=== PATIENT | female | born 1975 | race Hispanic/Latino ===

== ENCOUNTER 2017-12-05 06:37 | Inpatient (IN) | payer MEDICAID, SELFPAY ==
--- NOTE | 2017-12-05 07:26 | PDOC.LDHP ---
Labor and Delivery H&P Chief complaint: contractions HPI: 42 year old at 39.3 wks with CICI of 12/09/2017 not c/w LMP, but first ( 7.6 wks) and second trimester ultrasounds had consistent dating. Presents with contractions. Current gestational age (weeks): 39 (39.3) Due date: 12/09/17 Dating criteria: first trimester ultrasound, second trimester ultrasound Grav: 7 Para: 5 OB History Details: 1. GBS bateriuria 2. AMA 3. [place] 4. Hx of spontaneous ab in first trimester Current complications: none Abnormal US findings: No Past Medical History: 1. MDD Current medications: pre- vitamins Previous surgical history: none Social history: none - Physical Exam Vital signs reviewed and normal: yes General: NAD, resting Heart: RRR Lungs: nonlabored breathing Abdomen: gravid Extremeties: no edema FHT: category 1, variability present - Vaginal Exam cm dilated: 4 (By Timothy @ 7:30) Effacement: 75% Station: -2 - OB Labs Blood type: A RH: positive Antibody Screen: negative HIV: negative RPR: negative HEPSAg: negative 1 hour GCT: positive 3 hour GTT: negative GBS: positive Urine drug screen: not done Rubella: immune Additional Labs: Pap smear: normal in 2017 - Assessment L&D Assessment: term patient in labor - Plan Plan: admit to L&D <Nicol Carranza - Last Filed: 12/05/17 07:35> <Sakina Kelley - Last Filed: 12/05/17 10:57> Allergies/Adverse Reactions: Allergies Allergy/AdvReac Type Severity Reaction Status Date / Time No Known Drug Allergies Allergy Verified 03/09/14 04:40 Attending Addendum - Attending Addendum Date/Time: 12/05/17 1053 I personally evaluated the patient and discussed the management with Dr. Carranza/Timothy I agree with the History, Examination, Assessment and Plan documented above with any addition or exceptions noted below- 42 yo @ 39.3 weeks presented with ctx. Denies LOF, VB. (+)FM. Afebrile VSS SVE 4/75%/-2 per resident. Category 1 FHTs. ctx q5-6 min. A/p: IUP @39.3 weeks in latent labor. Cervical change in office earlier this week was 2cm. Monitor for change. Consider ambulation. <Sakina Kelley - Last Filed: 12/05/17 10:57>
[2017-12-05] MEDS ORDERED: Lidocaine 1% (PF) 30 ML VIAL SC PRN (07:37)
[2017-12-05] MEDS ORDERED: Ibuprofen 800 MG TAB PO PRN (07:37)
[2017-12-05] MEDS ORDERED: Promethazine HCl 25 MG/ML VIAL IM PRN (07:37)
[2017-12-05] MEDS ORDERED: Ondansetron HCl/PF 4 MG/2 ML Vial IVP PRN (07:37)
[2017-12-05] MEDS ORDERED: LR / Pitocin 40 units/1000 ml 1,000 ML IV PRN (07:37)
[2017-12-05 07:55] VITALS: BMI 30.6
[2017-12-05] MEDS ORDERED: Penicillin G Potassium 5 MILL.UNITS in Sodium Chloride 0.9% 100 ML IVPB SCH (08:00)
[2017-12-05] MEDS: Lactated Ringer's 1,000 ML IV SCH ×2 (08:10→12:44)
[2017-12-05 08:55] LABS: Hemoglobin 12.4 g/dL (12.0-16.0); Mean Corpuscular HGB CONC 32.4 g/dL (32.0-36.0); Mean Corpuscular Hemoglobin 29.1 pg (27.0-31.0); Mean Corpuscular Volume 89.7 fl (81.0-99.0); Mean Platelet Volume 8.2 fL (7.4-10.4); Platelet Count 178 thou/uL (130-400); RBC Distribution Width 12.6 % (11.5-14.5); Red Blood Cell (RBC) Count 4.27 mill/uL (4.20-5.40); White Blood Cell (WBC) Count 6.8 thou/uL (4.8-10.8)
[2017-12-05 09:18] LABS: HBSAg Index 0.18 S/CO (0-0.99); Hep B Surf Ag Non-Reactive S/CO (NonReactive)
[2017-12-05 09:19] LABS: Syphilis Antibody Nonreactive (Nonreactive); Syphilis Antibody Index 0.25 S/CO (<1.00 Non-Reactive)
[2017-12-05] MEDS ORDERED: Methylergonovine 0.2 MG/ML VIAL ONE (10:50)
[2017-12-05] MEDS ORDERED: LR / Pitocin 40 units/1000 ml 1,000 ML ONE (10:50)
[2017-12-05] MEDS ORDERED: Misoprostol 200 MCG TAB ONE (10:50)
[2017-12-05] MEDS ORDERED: Lidocaine 1% (PF) 30 ML VIAL ONE (10:50)
[2017-12-05] MEDS ORDERED: Misoprostol 100 MCG TAB ONE (10:51)
--- NOTE | 2017-12-05 10:59 | PDOC.LDPN ---
Labor & Delivery Progress Note - Subjective Subjective: painful contractions - Objective Vital signs reviewed and normal: yes General: breathing through contractions Uterine fundus: palpable contractions SVE: 10:50 Dilation: 6-7 Effacement: 100% Station: -2 FHT: category 1 [place] contractions every: q2-3 min Plan: continue plan of care -: Patient progressing spontaneously. Has received 1 dose of PCN G for GBS prophylaxis. Next dose due @ 12:20; defer AROM until then.
[2017-12-05] MEDS: Penicillin G 2.5 MILL.units 2.5 MILL.UNITS in Premix Bag 1 BAG IVPB SCH ×3 (12:00→23:20)
--- NOTE | 2017-12-05 13:04 | PDOC.LDPN ---
Labor & Delivery Progress Note - Subjective Subjective: painful contractions - Objective Vital signs reviewed and normal: yes General: breathing through contractions Uterine fundus: palpable contractions SVE: 13:00 Dilation: 7 Effacement: 100% Station: -1 FHT: category 1 [place] contractions every: q2 min Other exam findings: SROM on exam- clear fluid Plan: continue plan of care -: Srom on exam- cervix stretchy 7cm. Head now -1 station. Anticipate soon. Has received PCN x2 for GBS prophylaxis.
[2017-12-05] MEDS ORDERED: Terbutaline Sulfate 1 MG/ML VIAL ONE (13:40)
[2017-12-05] MEDS ORDERED: Milk Of Magnesia 30 ML UDCUP PO PRN (14:43)
[2017-12-05] MEDS ORDERED: Lanolin Ointment 7 GM TUBE TOP PRN (14:43)
[2017-12-05] MEDS ORDERED: Adacel (T-DAP) 0.5 ML VIAL IM ONE (14:43)
[2017-12-05] MEDS ORDERED: diphenhydrAMINE 25 MG CAP PO PRN (14:43)
[2017-12-05] MEDS ORDERED: HYDROcodone/Acetaminophen 5/325 mg Tablet PO PRN (14:43)
[2017-12-05] MEDS ORDERED: Bisacodyl 10 MG SUPP PR PRN (14:43)
[2017-12-05] MEDS ORDERED: Preparation H Ointment 28 GM TUBE PR PRN (14:43)
[2017-12-05] MEDS ORDERED: LR / Pitocin 40 units/1000 ml 1,000 ML IV SCH (14:45)
[2017-12-05] MEDS ORDERED: LR 500 ML/Oxytocin 10 units 500 ML IV SCH (16:15)
--- NOTE | 2017-12-05 17:05 | PDOC.EVN ---
Event Note - Event Note Event Note: Delivering Physician Timothy Attending Grace Procedure: Spontaneous Vaginal Delivery, vacuum assist Anesthesia: none EBL: 200 ml Pre-op Diagnosis: 1. Term intrauterine in labor 2. advanced maternal age 3. GBS bacteruria Post-op Diagnosis: 1. Term intrauterine , delivered 2. same as above Indications: A 42 y/o female --> 6presents in active labor Delivery Note: This is 42 yo F @ 39.3 wks who delivered a viable M at 1622 ib 12/05/17. Following an uneventful antepartum course, a vigorous M was delivered over an intact perineum in the transverse position. Anterior Shoulder and then remainder of the body delivered. No nuchal cord. The head was held down and mouth and nares were bulb suctioned. Cord clamped and cut and cord blood collected. Placenta delivered intact with a 3 vessel cord noted. Fundal massage was performed and the fundus was firm. The cervix and vagina were inspected and found to be free of lacerations. Infant went to nursery in good condition for routine care. Apgars were 8, 9 at 1 & 5 minutes, respectively. Patient tolerated delivery well and went to after routine recovery/care. <Marni Aguirre - Last Filed: 12/05/17 17:02> - Event Note Event Note: I was present for, supervised and assisted with the vacuum assisted vaginal delivery. I agree with the findings and plan as documented by the resident with the exception of any changes noted below. 42 yo [id number] status post VAVD. During pushing the FHTs were noted to be in the 60s without recovery during rest periods or between contractions. Because of this, a vacuum delivery was recommended. The patient agreed. The bladder had been drained prior to initiation of pushing. The baby was in the right occiput anterior postition at + 2 station. Vacuum was applied to flexion point and inflated. With maternal pushing gentle traction was applied and the baby was brought to +4 station. . A modified Ritgen maneuver was used to stabilize the head. The vacuum was deflated and removed. The baby's head then delivered atraumatically. Remainder of delivery as documented above. <Celina Edwards - Last Filed: 12/07/17 08:40>
[2017-12-05] MEDS: Docusate Calcium (SURFAK) 240 MG CAP PO SCH (20:21)
[2017-12-05] MEDS: Ibuprofen 800 MG TAB PO SCH (20:22)
[2017-12-05] MEDS: Ferrous Sulfate 325 MG TAB PO SCH (23:19)
[2017-12-06] MEDS: Ibuprofen 800 MG TAB PO SCH ×3 (05:17→21:24)
[2017-12-06 05:39] LABS: Hemoglobin 12.2 g/dL (12.0-16.0); Mean Corpuscular HGB CONC 33.7 g/dL (32.0-36.0); Mean Corpuscular Hemoglobin 30.1 pg (27.0-31.0); Mean Corpuscular Volume 89.3 fl (81.0-99.0); Mean Platelet Volume 8.1 fL (7.4-10.4); Platelet Count 174 thou/uL (130-400); RBC Distribution Width 12.9 % (11.5-14.5); Red Blood Cell (RBC) Count 4.07 mill/uL (4.20-5.40); White Blood Cell (WBC) Count 15.3 thou/uL (4.8-10.8)
--- NOTE | 2017-12-06 07:23 | PDOC.PP ---
Post Progress Note Post Day #: 1 Subjective: She states that she is feeling very good, does not have much pain. Ambulating w/ o pain. Good appetite. Minimal vaginal bleeding. Discussed with her the option of vascectomy vs nexplanon in the clinic. She is interested, hasn't discussed it with her yet but just wondering which option would be more economical. PO intake tolerated: yes Flatus: yes Ambulation: yes Vital Signs (12 hours) Temp Pulse Resp BP 12/06/17 04:00 98.1 F 69 16 100/49 L 12/06/17 00:00 98.9 F 72 16 110/56 L 12/05/17 21:20 98.9 F 72 16 115/55 L 12/05/17 20:20 68 16 118/53 L 12/05/17 20:00 98.2 F 61 16 130/67 Weight Weight 80.82 kg - Physical Examination General: NAD Cardiovascular: no m/r/g, RRR Respiratory: clear to auscultation bilaterally, non-labored breathing Abdominal: + bowel sounds, lochia, no distention, appropriately TTP Neurological: no gross focal deficits Psychiatric: A&Ox3, normal affect Result Diagrams: 12/06/17 05:15 Additional Labs: Post Labs Hep Bs Antigen Non-Reactive S/CO (NonReactive) 12/05/17 08:27 (1) Status post vacuum-assisted vaginal delivery Code(s): Z87.42 - PERSONAL HISTORY OF OTH DISEASES OF THE FEMALE GENITAL TRACT Status: Acute Comment: Used vacuum briefly to assist delivery 2/2 to maternal fatigue, no perineal lacs (2) Advanced maternal age (AMA), 40 years or greater Code(s): [id number] - Status: Acute Comment: Overall doing well. Discussed milk supply coming in in a few days and encouraged continuing to breast feed. (3) GBS bacteriuria Code(s): R82.71 - BACTERIURIA Status: Acute Comment: GBS bacteruria early in , will watch baby for 48 hrs so mom will be here til tomorrow. <Marni Aguirre - Last Filed: 12/06/17 07:21> Vital Signs (12 hours) Temp Pulse Resp BP 12/06/17 07:50 98.0 F 64 16 102/57 L 12/06/17 04:00 98.1 F 69 16 100/49 L 12/06/17 00:00 98.9 F 72 16 110/56 L Weight Weight 80.82 kg Result Diagrams: 12/06/17 05:15 Additional Labs: Post Labs Hep Bs Antigen Non-Reactive S/CO (NonReactive) 12/05/17 08:27 <Sakina Kelley - Last Filed: 12/06/17 09:50> Attending Addendum - Attending Addendum Date/Time: 12/06/1748 I personally evaluated the patient and discussed the management with Dr. Aguirre I agree with the History, Examination, Assessment and Plan documented above with any addition or exceptions noted below- Patient without complaints. Denies any pain. Minimal vaginal bleeding. Afebrile VSS. A/P: PPD#1 s/p VAVD- continue routine care. Monitor for 36-48 hours due to GBS bacteruria in mom; adequately treated. <Sakina Kelley - Last Filed: 12/06/17 09:50>
[2017-12-06] MEDS: Ferrous Sulfate 325 MG TAB PO SCH ×2 (10:01→15:50)
[2017-12-06] MEDS: Prenatal Vitamin 1 TAB PO SCH (10:01)
[2017-12-06] MEDS: Docusate Calcium (SURFAK) 240 MG CAP PO SCH ×2 (10:01→21:24)
[2017-12-06 19:34] VITALS: TEMP 98.9
[2017-12-07] MEDS: Ibuprofen 800 MG TAB PO SCH (05:49)
--- NOTE | 2017-12-07 07:39 | PDOC.PP ---
Post Progress Note Post Day #: 2 Subjective: Doing well. No concerns. Ready for d/c today. PO intake tolerated: yes Flatus: yes Ambulation: yes Weight Weight 80.82 kg - Physical Examination General: NAD Cardiovascular: no m/r/g, RRR Respiratory: clear to auscultation bilaterally, non-labored breathing Abdominal: + bowel sounds, lochia, no distention, appropriately TTP Neurological: no gross focal deficits Psychiatric: A&Ox3, normal affect Result Diagrams: 12/06/17 05:15 Additional Labs: Post Labs Hep Bs Antigen Non-Reactive S/CO (NonReactive) 12/05/17 08:27 (1) Status post vacuum-assisted vaginal delivery Code(s): Z87.42 - PERSONAL HISTORY OF OTH DISEASES OF THE FEMALE GENITAL TRACT Status: Acute Comment: Used vacuum briefly to assist delivery 2/2 to maternal fatigue, no perineal lacs. Hgb stable 12.2 from 12.4 on admisison (2) Advanced maternal age (AMA), 40 years or greater Code(s): [id number] - Status: Acute Comment: Overall doing well. Discussed milk supply coming in in a few days and encouraged continuing to breast feed. Discussed with patient contraception plans yesterday, deciding between nexplanon and vasectomy, to discuss vasectomy with and will depend on which option is more economical. Follow up with me in clinic in 4 weeks. Will inform her on prices (3) GBS bacteriuria Code(s): R82.71 - BACTERIURIA Status: Acute Comment: GBS bacteruria early in , baby has been asymptompatic for almost 40 hours so plan to dc after rounds. <Marni Aguirre - Last Filed: 12/07/17 07:38> Weight Weight 80.82 kg Result Diagrams: 12/06/17 05:15 Additional Labs: Post Labs Hep Bs Antigen Non-Reactive S/CO (NonReactive) 12/05/17 08:27 <Ivan Robles - Last Filed: 12/10/17 11:11> Attending Addendum - Attending Addendum Date/Time: 12/10/17 1110 I personally evaluated the patient and discussed the management with Dr. Aguirre on 12/07/17. I agree with the History, Examination, Assessment and Plan documented above with any addition or exceptions noted below. Pain controlled Lochia normal. Afeb. Fundus firm. Stable for d/c home. <Ivan Robles - Last Filed: 12/10/17 11:11>
[2017-12-07 07:48] VITALS: BP 122/56
[2017-12-07] MEDS: Ferrous Sulfate 325 MG TAB PO SCH (07:53)
[2017-12-07] MEDS: Prenatal Vitamin 1 TAB PO SCH (08:38)
[2017-12-07] MEDS: Docusate Calcium (SURFAK) 240 MG CAP PO SCH (08:38)
== END 2017-12-07 14:45 | disposition home or self-care (01) | DRG 775 ==
LOC: L&D/OP 06:37 → L&D 11:00 → 3SW 19:23
PROVIDERS: ADMIT Family Medicine; ATTEND Family Medicine
PROC: 10D07Z6 Extraction of Products of Conception, Vacuum, Via Natural or Artificial Opening (ICD-10-PCS; principal; 2017-12-05)
DX: O99.824 Streptococcus B carrier state complicating childbirth (principal); O76 Abnormality in fetal heart rate and rhythm complicating labor and delivery; O75.81 Maternal exhaustion complicating labor and delivery; Z37.0 Single live birth; Z3A.39 39 weeks gestation of pregnancy
CPT/HCPCS: 36415; 85027; 86780; 87340; 99285; J2001; J2210; J2540; J3105; J7050

== ENCOUNTER 2018-08-26 16:23 | Emergency (ER) | payer MEDICAID, SELFPAY ==
[~2018-08-26 16:23] MED LIST: ISOVUE-370 76%-LOCM 1 ML ONE
[2018-08-26 16:42] LABS: #Eosinphils 0.2 thou/uL (0.0-0.7); #Monocytes 0.5 thou/uL (0.11-0.59); #Neutrophils 2.4 thou/uL (1.40-6.50); %Basophils 0.8 % (0.0-1.0); %Eosinophils 3.8 % (0.0-10.0); %Lymphocytes 39.3 % (21.0-51.0); %Monocytes 8.8 % (0.0-10.0); %Neutrophils 47.3 % (42.0-75.0); Hemoglobin 13.5 g/dL (12.0-16.0); Mean Corpuscular HGB CONC 32.9 g/dL (32.0-36.0); Mean Corpuscular Hemoglobin 28.6 pg (27.0-31.0); Mean Corpuscular Volume 86.8 fL (78.0-98.0); Platelet Count 260 thou/uL (130-400); Red Blood Cell (RBC) Count 4.72 mill/uL (4.20-5.40); White Blood Cell (WBC) Count 5.1 thou/uL (4.8-10.8)
--- NOTE | 2018-08-26 16:44 | CT ---
CT HEAD WITHOUT CONTRAST: 08/26/18 Multiple axial tomograms obtained through the head without contrast. INDICATIONS: Stroke alert. Left side facial droop. FINDINGS: The ventricles have normal size and position. No evidence of intracranial mass or hemorrhage. There is no evidence of acute cortical infarct. The sinuses and mastoids are clear. IMPRESSION: No acute process. Findings related to Dr. Levin at 4:35 p.m. POS: [facility]
[2018-08-26 16:46] LABS: PTT 27.5 SEC (22.9-36.1); Prothrombin Time 12.9 SEC (12.0-14.7)
[2018-08-26 16:53] LABS: ALT (SGPT) 12 U/L (8-55); AST (SGOT) 17 U/L (5-34); Albumin 4.2 g/dL (3.5-5.0); Alkaline Phosphatase 122 U/L (40-150); Anion Gap 12 mmol/L (10-20); BUN (Urea Nitrogen) 15 mg/dL (7.0-18.7); Bilirubin, Total 0.2 mg/dL (0.2-1.2); CK (CPK) 97 U/L (29-168); Calc. Creatinine Clearance 0 mL/min (70-130); Carbon Dioxide 26 mmol/L (22-29); Chloride 104 mmol/L (98-107); Estimated GFR-MDRD Greater than 90; Globulin 3.5 g/dL (2.4-3.5); Glucose 112 mg/dL (70-105); Potassium 3.7 mmol/L (3.5-5.1); Protein, Total 7.7 g/dL (6.0-8.3); Sodium 138 mmol/L (136-145)
[2018-08-26 16:57] LABS: CKMB 1.2 ng/mL (0-6.6); Troponin I Less than 0.010 ng/mL (< 0.028)
--- NOTE | 2018-08-26 18:28 | CT ---
CTA CAROTID AND INTRACRANIAL CTA 08/26/18 HISTORY: Stroke. Contrast enhanced CTA of the carotid arteries and intracranial CTA performed. 2D and 3D reconstructed images performed on an independent 3D workstation. The aortic arch and visualized great vessels are unremarkable. The right and left common carotid javid evelia are patent without evidence of significant disease. The right and left internal carotid arteries are patent in the cervical and intracranial portions. The ESTELA, MCA and posterior cerebral arteries are all patent. The right and left vertebral arteries as well as the basilar artery are patent. IMPRESSION: Normal carotid and intracranial CTA. POS: [facility]
--- NOTE | 2018-09-01 13:43 | EKG ---
Test Reason : Blood Pressure : / mmHG Vent. Rate : 075 BPM Atrial Rate : 075 BPM P-R Int : 128 ms QRS Dur : 076 ms QT Int : 390 ms P-R-T Axes : 000 074 055 degrees QTc Int : 435 ms Normal sinus rhythm Normal ECG Confirmed by CESAR SALAZAR ([id number]), science editor CROW [place] ([id number] on 09/01/2018 1:43:11 PM Referred By: Confirmed By:CESAR SALAZAR
== END 2018-08-26 18:29 | disposition home or self-care (01) ==
LOC: ERS 16:23
DX: R20.2 Paresthesia of skin (principal)
CPT/HCPCS: 36416; 70450; 70496; 70498; 80053; 82550; 82553; 84484; 85025; 85610; 85730; 93005

== ENCOUNTER 2020-03-02 13:03 | Emergency (ER) | payer SELFPAY ==
[2020-03-02] MEDS ORDERED: methylPREDNISolone Sod Succ/PF 125 MG/2 ML VIAL ONE (13:30)
[2020-03-02] MEDS ORDERED: Famotidine 20 MG TAB ONE ×2 (13:30)
[2020-03-02] MEDS ORDERED: EPINEPHrine 1 MG/ML AMP ONE (13:30)
[2020-03-02] MEDS ORDERED: diphenhydrAMINE 50 MG/ML VIAL ONE (13:30)
[2020-03-02] MEDS ORDERED: Famotidine/PF 20 mg/2ml Vial ONE (13:30)
== END 2020-03-02 16:50 | disposition home or self-care (01) ==
LOC: ERS 13:03
DX: T78.2XXA Anaphylactic shock, unspecified, initial encounter (principal)
CPT/HCPCS: 96372; 96374; 96375; J0171; J1200; J2930; S0028

== ENCOUNTER 2024-06-03 09:53 | Outpatient (CLI) | payer OTHER | END 2024-06-03 09:54 | disposition home or self-care (01) | LOC: BICMAMMO 09:53 | PROVIDERS: ATTEND Student in an Organized Health Care Education/Training Program | DX: Z12.31 Encounter for screening mammogram for malignant neoplasm of breast (principal) | CPT/HCPCS: 77063; 77067 ==